=== PATIENT | male | born 1980 | race Caucasian/White ===

== ENCOUNTER 2017-03-13 16:47 | Emergency (ER) | payer OTHER ==
[~2017-03-13] VITALS: Ht 172.7 cm; Wt 90.3 kg
[2017-03-13 16:50] VITALS: Ht 172.7 cm; Wt 90.3 kg
[2017-03-13] MEDS ORDERED: CEPHALEXIN 500 MG CAP PO ONE (17:30)
[2017-03-13] MEDS ORDERED: TRIMETHOPRIM/SULFAMETHOX (DS) TAB PO ONE (17:30)
[2017-03-13] MEDS ORDERED: IBUP-1542 PO (17:30)
[2017-03-13] MEDS ORDERED: DIPHTH/TET/ACEL PERTUSS (ADULT) 0.5 ML VIAL IM* ONE (17:30)
[2017-03-13] MEDS ORDERED: CEPH-443 PO (17:30)
[2017-03-13] MEDS ORDERED: LIDOCAINE 1% (MDV) 20 ML INJ SC ONE (17:30)
[2017-03-13] MEDS ORDERED: SULF1TAB31 PO (17:30)
--- NOTE | 2017-03-13 18:18 | ERD ---
ER Documentation Chief Complaint Chief Complaint Complains of left arm pain x 1 week HPI 37-year-old male admits to methamphetamine abuse coming in with an abscess on his left arm, as well as multiple on his bilateral thighs. Patient admits to smoking methamphetamine, denies IV drug abuse however he reports that he has been picking at his skin. The pain described is achy, and is localized to the dorsum of the left arm. He has not had any fevers or chills. Patient is not sure exactly when his last tetanus shot was. ROS All systems reviewed and are negative except as per history of present illness. Medications Home Meds Active Scripts Ibuprofen* (Motrin*) 600 Mg Tab, 600 MG PO Q6, #30 TAB Prov:MAK URBAN PA-C 03/13/17 Sulfamethoxazole/Trimethoprim* (Bactrim Ds* Tablet) 1 Each Tablet, 1 TAB PO BID , #14 TAB Prov:MAK URBAN PA-C 03/13/17 Cephalexin* (Keflex*) 500 Mg Capsule, 500 MG PO QID for 7 Days, CAP Prov:MAK URBAN PA-C 03/13/17 Allergies Allergies: Coded Allergies: No Known Allergy (Verified Allergy, Unknown, 11/02/06) PMhx/Soc Medical and Surgical Hx: pt denies Medical Hx, pt denies Surgical Hx Hx Substance Use: Yes (methamphetamine) Physical Exam Vitals Vital Signs Date Time Temp Pulse Resp B/P Pulse Ox O2 Delivery O2 Flow Rate FiO2 03/13/17 16:50 99.2 119 20 132/81 97 Physical Exam General: Well-developed, well-nourished. The patient appears in no acute distress. HEENT: Head is normocephalic, atraumatic. No scleral icterus. Neck: Supple. Nontender. Lungs: Clear to auscultation. Normal air movement. Heart: Regular rate and rhythm. S1 and S2 are normal. No murmurs, gallops, or rubs. Abdomen: Soft, nontender, nondistended. Bowel sounds are normoactive. Extremities: 3 cm area of cellulitis with central fluctuance on the worsening of the left wrist. There is erythema, but no lymphatic streaking. He has no difficulty or limitations of range of motion of the left wrist. Multiple boils to the bilateral medial thighs. Neurologic: Alert and oriented 3. No focal deficits. Skin: Abscesses as noted in extremities. Results 24 hrs Current Medications Medications (Trade) Dose Ordered Sig/Dionisio Route PRN Reason Start Time Stop Time Status Last Admin Dose Admin Diphtheria/ Tetanus/Acell Pertussis (Adacel) 0.5 ml ONCE ONCE IM* 03/13/17 17:30 03/13/17 17:31 DC Cephalexin (Keflex) 500 mg ONCE ONCE PO 03/13/17 17:30 03/13/17 17:31 DC Trimethoprim/ Sulfamethoxazole (Bactrim (Ds)) 1 tab ONCE ONCE PO 03/13/17 17:30 03/13/17 17:31 DC Lidocaine (Xylocaine 1% (Mdv) 20 ml) 20 ml ONCE ONCE SC 03/13/17 17:30 03/13/17 17:31 DC Procedures/MDM Abscess Incision and Drainage with irrigation by me: Patient was verbally consented Location: Left arm Anesthesia: Local 1% Lidocaine Technique: Irrigated. Disrupted loculations w/ instrumentation Packing: None Complications: Neurovascularly intact post procedure 48 hour wound check. Scar minimization instructions given. Patient's skin symptoms have stabilized while they have been evaluated in the department and are appropriate for outpatient care and work up. Exam and w/u not consistent w/ sepsis, deep space infection, or foreign body. Departure Diagnosis: Primary Impression: Abscess Additional Impression: Encounter for incision and drainage procedure Condition: Good Patient Instructions: Abscess, Incision And Drainage Additional Instructions: Follow up in 2 days in your clinic for wound check. MAK URBAN PA-C Mar 13, 2017 18:18
== END 2017-03-13 19:20 | disposition home or self-care (01) ==
LOC: FTE 16:47
DX: L02.414 Cutaneous abscess of left upper limb (principal); Z23 Encounter for immunization
CPT/HCPCS: 10060; 90471; 90715; Z7502; Z7610

== ENCOUNTER 2017-03-20 15:15 | Emergency (ER) | payer OTHER ==
[~2017-03-20] VITALS: Ht 172.7 cm; Wt 93.7 kg
[~2017-03-20 15:15] MED LIST: CEPH-443 PO; IBUP-1542 PO; SULF1TAB31 PO
[2017-03-20 15:18] VITALS: Ht 172.7 cm; Wt 93.7 kg
[2017-03-20] MEDS ORDERED: SULF1TAB31 PO (15:50)
[2017-03-20] MEDS ORDERED: CEPH-443 PO (15:50)
--- NOTE | 2017-03-20 16:50 | ERD ---
ER Documentation Chief Complaint Chief Complaint Patient here for a medication refill HPI 37-year-old male patient with no significant past medical history presents to the ED complaining of losing his prescription for Bactrim and Keflex as he was seen here on March 13, 2017 for a incision and drainage of an abscess on his left forearm due to methamphetamine use. Denies any chest pain, shortness of breath, nausea, vomiting, loss of sensation, loss of range of motion. Patient reports that it feels better after the incision and drainage however has not been taking the antibiotics because he lost his prescription. ROS All systems reviewed and are negative except as per history of present illness. Medications Home Meds Active Scripts Cephalexin* (Keflex*) 500 Mg Capsule, 500 MG PO QID for 7 Days, CAP Prov:IDALMIS GUTIÉRREZ PA-C 03/20/17 Sulfamethoxazole/Trimethoprim* (Bactrim Ds* Tablet) 1 Each Tablet, 1 TAB PO BID , #14 TAB Prov:IDALMIS GUTIÉRREZ PA-C 03/20/17 Ibuprofen* (Motrin*) 600 Mg Tab, 600 MG PO Q6, #30 TAB Prov:MAK URBAN PA-C 03/13/17 Sulfamethoxazole/Trimethoprim* (Bactrim Ds* Tablet) 1 Each Tablet, 1 TAB PO BID , #14 TAB Prov:MAK URBAN PA-C 03/13/17 Cephalexin* (Keflex*) 500 Mg Capsule, 500 MG PO QID for 7 Days, CAP Prov:MAK URBAN PA-C 03/13/17 Allergies Allergies: Coded Allergies: No Known Allergy (Verified Allergy, Unknown, 11/02/06) PMhx/Soc Medical and Surgical Hx: pt denies Medical Hx, pt denies Surgical Hx History of Surgery: No Anesthesia Reaction: No Hx Neurological Disorder: No Hx Respiratory Disorders: No Hx Cardiac Disorders: No Hx Psychiatric Problems: No Hx Miscellaneous Medical Probl: Yes Hx Alcohol Use: No Hx Substance Use: Yes (methamphetamine) Hx Tobacco Use: No Smoking Status: Never smoker Physical Exam Vitals Vital Signs Date Time Temp Pulse Resp B/P Pulse Ox O2 Delivery O2 Flow Rate FiO2 03/20/17 15:18 98.6 60 20 139/95 98 Physical Exam Const: [id number], well-nourished. In no acute distress. Head: Atraumatic, normocephalic Eyes: Normal Conjunctiva without injection ENT: Normal external ear, nose and mouth. Neck: Full range of motion. No meningismus. Resp: Clear to auscultation bilaterally. No wheezing, rhonchi, rales, or crackles. No accessory muscle use. No retractions. Cardio: Regular rate and rhythm, no murmurs Skin: No petechiae or rashes Back: No midline tenderness. No CVA tenderness. Ext: No cyanosis, or edema. Cap refill less than 2 seconds. Distal pulses intact bilaterally. 3 cm indurated abscess noted on the dorsal aspect of patient's left wrist region with no signs of fluctuance or erythema or edema. No bleeding noted. Slight spontaneous purulent discharge noted coming from incision site. Healing appropriately. Neur: Awake and alert. Normal gait and coordination. Muscle strength 5/5. Sensation intact bilaterally. Psych: Normal Mood and Affect Procedures/MDM 37-year-old male patient with no significant past medical history presents to the ED complaining of an abscess on the left forearm. Patient is afebrile and nontoxic-appearing. Patient has normal vital signs. No indication for a repeat incision and drainage at this time. Patient will be prescribed his Bactrim and Keflex for further outpatient management. He was instructed to follow-up in 2 days for a wound check. Low suspicion for anaphylaxis, scabies, SJS/TEN, TSS, Lyme's Disease, septic arthritis, syphilis, RMSF, shingles, disseminated gonorrhea chlamydia, DIC, TTP, ITP, erythema multiforme, sepsis, cellulitis, necrotizing fascitis, gangrene, meningococcemia, allergic contact dermatitis, urticaria, eczema, tinea infection, or other emergent conditions. Discharge medications: Keflex, Bactrim Follow up with primary care physician in 1-2 days. Instructed patient to return to the ED sooner for any worsening symptoms. Patient's questions were answered. Patient understood and agreed with discharge plan. Patient discharged stable. Departure Diagnosis: Primary Impression: Encounter for medication refill Condition: Stable Patient Instructions: Abscess Drainage Referrals: KOFI STEVENS MD [facility] YOU HAVE RECEIVED A MEDICAL SCREENING EXAM AND THE RESULTS INDICATE THAT YOU DO NOT HAVE A CONDITION THAT REQUIRES URGENT TREATMENT IN THE EMERGENCY DEPARTMENT. FURTHER EVALUATION AND TREATMENT OF YOUR CONDITION CAN WAIT UNTIL YOU ARE SEEN IN YOUR DOCTORS OFFICE WITHIN THE NEXT 1-2 DAYS. IT IS YOUR RESPONSIBILITY TO MAKE AN APPOINTMENT FOR FOLOW-UP CARE. IF YOU HAVE A PRIMARY DOCTOR --you should call your primary doctor and schedule an appointment IF YOU DO NOT HAVE A PRIMARY DOCTOR YOU CAN CALL OUR PHYSICIAN REFERRAL HOTLINE AT IF YOU CAN NOT AFFORD TO SEE A PHYSICIAN YOU CAN CHOSE FROM THE FOLLOWING [facility] [address] [facility] [address] [facility] [address] [facility] [address] [facility] [address] [facility]. [facility] [address] [facility]. [facility] YOU HAVE RECEIVED A MEDICAL SCREENING EXAM AND THE RESULTS INDICATE THAT YOU DO NOT HAVE A CONDITION THAT REQUIRES URGENT TREATMENT IN THE EMERGENCY DEPARTMENT. FURTHER EVALUATION AND TREATMENT OF YOUR CONDITION CAN WAIT UNTIL YOU ARE SEEN IN YOUR DOCTORS OFFICE WITHIN THE NEXT 1-2 DAYS. IT IS YOUR RESPONSIBILITY TO MAKE AN APPOINTMENT FOR FOLOW-UP CARE. IF YOU HAVE A PRIMARY DOCTOR --you should call your primary doctor and schedule and appointment IF YOU DO NOT HAVE A PRIMARY DOCTOR YOU CAN CALL OUR PHYSICIAN REFERRAL HOTLINE AT . IF YOU CAN NOT AFFORD TO SEE A PHYSICIAN YOU CAN CHOSE FROM THE FOLLOWING [facility]: [facility] [address] [place] [address] [facility] [address] [place] [address] [facility] [address] [place] [address] [facility] URGENT CARE/SPECIALTIES Additional Instructions: Call your primary care doctor TOMORROW for an appointment during the next 2-3 days.See the doctor sooner or return here if your condition worsens before your appointment time. Warm Compresses recommened. Complete all antibiotics. Follow up in 2 days in your clinic for wound check. IDALMIS GUTIÉRREZ PA-C Mar 20, 2017 16:49 IDALMIS GUTIÉRREZ PA-C Mar 20, 2017 16:49
== END 2017-03-20 16:16 | disposition home or self-care (01) ==
LOC: FTE 15:15
DX: Z76.0 Encounter for issue of repeat prescription (principal)
CPT/HCPCS: 99281